=== PATIENT | female | born 1995 | race Caucasian/White ===

== ENCOUNTER 2019-11-02 19:10 | Outpatient (CLI) | payer BC ==
[~2019-11-02] VITALS: Ht 167.6 cm; Wt 81.8 kg
--- NOTE | 2019-11-02 18:55 | NUR ---
Pt arrived on unit with complaints of right lower back/side pain every "couple minutes". Pt denies any leaking of fluid or vaginal bleeding. EFM and toco monitors started. Vital signs WNL. Spoke with Dr. Tejada for an update on pt's arrival, complaints and history. Orders for IV fluids and UA received. See charting for details.
[2019-11-02 20:00] VITALS: BP 121/75; PULSE 75; TEMP 98.3
[2019-11-02] MEDS ORDERED: PRENATAL (20:06)
[2019-11-02 20:43] LABS: PH 7 (5-8); SQUAMOUS EPITHELIAL 0-2 /hpf; URINE APPEARANCE Clear; URINE BACTERIA Occasional /hpf; URINE BILIRUBIN Negative (NEGATIVE); URINE BLOOD 1+ (NEGATIVE); URINE COLOR Yellow; URINE GLUCOSE Negative (NEGATIVE); URINE KETONE Negative (NEGATIVE); URINE LEUKOCYTE ESTERASE 2+ (NEGATIVE); URINE NITRATE Negative (NEGATIVE); URINE PROTEIN(semi-quant) Negative (NEGATIVE); URINE RBC 0-2 /hpf; URINE UROBILINOGEN Negative (NEGATIVE)
--- NOTE | 2019-11-02 21:00 | NUR ---
Pt reports feeling better. Spoke with Dr. Tejada for an update on pt's status. Labs reviewed. SVE by this RN closed/thick/high. Orders for discharge home received. Information reviewed with pt and at the bedside. Both verbalized an understanding and agreed with the plan.
[2019-11-02 21:15] VITALS: BP 114/64; PULSE 77
[2019-11-02 22:29] LABS: COLLECTION METHOD CLEAN CATCH
== END 2019-11-02 21:34 | disposition home or self-care (01) ==
LOC: LDRO 19:10
PROVIDERS: Obstetrics & Gynecology
DX: O26.892 Other specified pregnancy related conditions, second trimester (principal); R52 Pain, unspecified; Z3A.20 20 weeks gestation of pregnancy

== ENCOUNTER 2019-11-06 06:48 | Day surgery (SDC) | payer BC ==
[~2019-11-06] VITALS: Ht 167.6 cm; Wt 82.8 kg
[~2019-11-06 06:48] MED LIST: PRENATAL PO
--- NOTE | 2019-11-06 06:55 | NUR ---
The patient was brought back to [facility] via ambulation using a steady gait and appeared to tolerate the activity well. Vital signs obtained. Consent signed. The patient reports to the nurse that starting "yesterday evening through this morning" her pain has "gone away". She is reluctant to have surgery ,as she is 20 weeks , since she is feeling better. The nurse instructed the patient that she would contact the surgeon to come talk to her before continuing her admission.
--- NOTE | 2019-11-06 07:20 | NUR ---
Dr. Love is at the patient's bedside discussing her new lack of symptoms and how best to proceed today. After discussing her options it was decided between the patient and Dr. Love to cancel her surgery today and discharge her home to monitor her symptoms. Dr. Love instructed the nurse to provide the patient with both his personal cell phone number and his office number for her to call if she starts to have the same symptoms return. She verbalized understanding and has no further questions for the doctor at this time.
--- NOTE | 2019-11-06 07:35 | NUR ---
The patient was escorted to the elevator via ambulation. The patient was sent home with a hat to collect her urine and a strainer to use to try and retrieve a stone if she passes it. She was instructed on how to use the hat and strainer and was given a specimen cup to place any particles that are collected. The nurse instructed the patient to call Dr. Love on Saturday if she is still feeling good to touch base. The patient's is present to drive her home.
[2019-11-06 07:37] VITALS: BP 104/66; PULSE 95; TEMP 98.2
== END 2019-11-06 07:35 | disposition home or self-care (01) ==
LOC: SDCO 06:48
DX: O26.832 Pregnancy related renal disease, second trimester (principal); N20.0 Calculus of kidney; O98.312 Other infections with a predominantly sexual mode of transmission complicating pregnancy, second trimester; A60.00 Herpesviral infection of urogenital system, unspecified; Z83.3 Family history of diabetes mellitus; Z80.1 Family history of malignant neoplasm of trachea, bronchus and lung; Z53.8 Procedure and treatment not carried out for other reasons

== ENCOUNTER 2020-03-17 17:08 | Outpatient (CLI) | payer BC ==
[~2020-03-17] VITALS: Ht 167.6 cm; Wt 90.9 kg
--- NOTE | 2020-03-17 17:27 | NUR ---
Patient ambulatory to unit accompanied by spouse. States she started having regular painful contractions around 1300 today. Denies any leaking of fluid or vaginal bleeding and states baby has been active. FHR and contraction monitors placed and explained. SVE 07/25/. Assessment completed. Will call doctor for orders
[2020-03-17] MEDS ORDERED: VALTREX 50500 MG/TAB PO (17:28)
--- NOTE | 2020-03-17 17:40 | NUR ---
1740: Patient given mug of water and crackers. Encouraged oral hydration and snack.
--- NOTE | 2020-03-17 18:10 | NUR ---
1809: IV started in left hand, D5 1/2 NS infusing. 1816: FHR minimal variability, no accelerations and no decelerations. Oxygen on via face mask at 10L. Patient repositioned to far right lateral.
[2020-03-17 18:22] VITALS: BP 118/74; PULSE 73
[2020-03-17 19:00] VITALS: BP 107/59; PULSE 77
[2020-03-17 19:31] VITALS: BP 110/58; PULSE 70
--- NOTE | 2020-03-17 19:31 | NUR ---
ULTRASOUND AT BEDSIDE FOR BPP. EFM DC'D DURING BPP.
--- NOTE | 2020-03-17 20:16 | NUR ---
DR. MARQUEZ CALLS THIS NURSE TO GIVE RESULTS OF BPP. DR. MARQUEZ STATES HR OF 136BPM, NORMAL AMNIOTIC FLUID, 02/05 BPP. THIS NURSE NOTIFIES DR. MARQUEZ THAT HE IS TO CONTACT DR. CORDON WITH THESE RESULTS THEY ARE NOT TO BE CALLED TO THE NURSING STAFF. HE STATES, "SERIOUSLY? YOU CAN'T JUST TELL HER?" THIS NURSE STATES THAT SHE CAN BUT HE IS REALLY TO CALL THE PHYSICIAN DIRECTLY TO GIVE THESE RESULTS. HE STATES, "I DON'T HAVE HER NUMBER." THIS NURSE PROVIDES DR. CORDON'S PHONE NUMBER TO DR. MARQUEZ WHO THEN STATES, "FINE, I WILL CALL HER."
[2020-03-17 20:24] VITALS: BP 112/59; PULSE 83
--- NOTE | 2020-03-17 20:24 | NUR ---
2020- DR. CORDON CALLS UNIT AND STATES THAT SHE REVIEWED THE BPP RESULTS. THIS NURSE ASKS IF DR MARQUEZ CONTACTED HER WITH THE RESULTS, SHE STATES, "NO." THIS NURSE NOTIFIED DR. CORDON OF THE RESULTS GIVEN BY DR. MARQUEZ WHEN HE CALLED THE UNIT OF HR OF 136BPM, NORMAL AMNIOTIC FLUID, 02/[address] CORDON WAS NOTIFIED THAT DR. MARQUEZ HAD AGREED TO CALL HER DIRECTLY WHEN HE SPOKE TO THIS NURSE. SINCE BEING BACK ON THE MONITORS FOLLOWING THE BPP, FHT'S ARE REASSURING, MODERATE VARIABILITY NOTED, WITH 1 ACCELERATION IN THE LAST 20 MINUTES, NO DECELERATIONS NOTED. PT CONTINUES TO HAVE IRREGULAR CONTRACTIONS EVERY 2-5 MINUTES THAT SHE STATES SHE FEELS AND ARE UNCOMFORTABLE. DR CORDON GIVES ORDER FOR PT TO DC HOME AT THIS TIME SHE IS COMFORTABLE WITH THE BPP RESULTS AND HAS REVIEWED THE STRIP FROM HOME. THIS NURSE ASKED IF SHE WOULD LIKE A RECHECK OF THE PT'S SVE DUE TO CONTINUED CONTRACTIONS AND PT DISCOMFORT. SHE STATES TO PERFORM AN SVE BUT IF SIGNIFICANT CERVICAL CHANGE HAS NOT BEEN MADE THEN PT MAY DC HOME, CAN TAKE TYLENOL AND BENADRYL AND GET SOME REST. 2023- SVE UNCHANGED SINCE ARRIVAL, MONITORING DC'D. QUESTIONS ENCOURAGED AND ANSWERED. PT TO BATHROOM TO CHANGE WHILE DISCHARGE PAPERWORK IS PREPARED.
--- NOTE | 2020-03-17 21:00 | NUR ---
DISCHARGE INSTRUCTIONS REVIEWED WITH PT AND SPOUSE, QUESTIONS ENCOURAGED AND ANSWERED. PT OFF THE UNIT AMBULATORY WITH SPOUSE FOR HOME.
== END 2020-03-17 21:00 | disposition home or self-care (01) ==
LOC: LDRO 17:08 → LDR 17:53 → LDRO 21:00 → ZCOL.LAB 03-18 11:45
DX: O62.9 Abnormality of forces of labor, unspecified (principal); Z3A.39 39 weeks gestation of pregnancy
CPT/HCPCS: OP

== ENCOUNTER 2020-03-18 22:07 | Inpatient (IN) | payer BC ==
[~2020-03-18] VITALS: Ht 167.6 cm; Wt 93.2 kg
--- NOTE | 2020-03-18 22:05 | NUR ---
220- PT. TO THE FLOOR WITH BY HER SIDE. ORIENTATED TO ROOM AND CHANGED INTO CLEAN GOWN. PT. REPORTS GFM, NO LOF, NO BLOOD AND CONTRACTIONS EVERY 2-5 MINUTES THAT ARE GETTING STRONGER SINCE LOSING MUCUS PLUG TODAY AT 1600. 221- EFM AND TOCO ON AND TRACING. VITAL SIGNS TAKEN, ASSESSMENT COMPLETED. SVE /-2.
[~2020-03-18 22:07] MED LIST changes: +VALTREX 50500 MG/TAB PO
[2020-03-18 22:30] VITALS: BP 108/67; PULSE 80; TEMP 97.9
[2020-03-18 23:30] VITALS: BP 125/79; PULSE 75
[2020-03-19] VITALS (35 sets, daily range): BP systolic 95–142; BP diastolic 51–84; PULSE 65–89; TEMP 97.4–98.2
[2020-03-19 00:21] LABS: HEMOGLOBIN 10.6 g/dl (12.5-16.0); MEAN CELL VOLUME 85 fl (80.0-100.0); MEAN CORPUSCULAR HEMOGLOBIN 28 pg (27.0-31.0); MEAN CORPUSCULAR HGB CONC 33 g/dl (33.0-37.0); PLATELET COUNT 240 K/mm3 (130-400); RED BLOOD COUNT 3.81 M/mm3 (4.10-5.30); REDCELL DISTRIBUTION WIDTH-CV 14.7 % (11.5-14.5)
[2020-03-19 00:27] LABS: HEMATOCRIT 32.4 % (37.0-47.0)
--- NOTE | 2020-03-19 00:31 | NUR ---
0010- RN TO BEDSIDE TO HELP GET ROOM AND PATIENT SET UP FOR EPIDURAL PLACE. 0013- RUTHI, MACHINERY RIGGER TO BEDSIDE FOR EPIDURAL PLACEMENT. 0015- MATERNAL O2 ON AND TRACING, PATIENT HELPED TO SITTING POSITION FOR EPIDURAL PLACEMENT. RN REMAINS AT BEDSIDE. 0028- SINGLE SHOT, SEE ANESTHESIA RECORD. 0031- TEST DOSE, SEE ANESTHESIA RECORD. RN REMAINS AT BEDSIDE, VITALS STABLE, PATIENT HELPED TO LL POSITION.
[2020-03-19 00:52] LABS: EOSINOPHIL 1 % (0-4); LYMPHOCYTE 37 % (20.0-51.0); NEUTROPHILS 54 % (42.0-75.2); PLATELET ESTIMATE NORMAL (NORMAL)
[2020-03-19 00:54] LABS: HYPOCHROMIA 1+
--- NOTE | 2020-03-19 01:53 | NUR ---
DR. DOVER TO BEDSIDE FOR AROM. LARGE AMOUNT OF MECONIUM STAINED FLUID NOTED. SVE /-2. PATIENT TOLERATED PROCEDURE WELL. PROVIDER DISCUSSED MECONIUM STAINED FLUID WITH PATIENT AND WHAT TO EXPECT AND THE POTENTIAL RISKS AND ANSWERED QUESTIONS. CALL LIGHT WITHIN REACH AND PATIENT DENIES FURTHER NEEDS AT THIS TIME.
--- NOTE | 2020-03-19 05:15 | NUR ---
0515- DR. DOVER AND RN TO BEDSIDE FOR SVE. SVE /-1. DR. DOVER DISCUSSES STARTING PITOCIN TO HELP GET CONTRACTIONS MORE CONSISTENT AND STRONGER TO HELP WITH THE LABOR PROCESS SINCE THE PATIENT HAS STARTED TO NOT MAKE ADEQUATE CHANGE. PATIENT AGREED AND PROVIDER ANSWERED QUESTIONS. 0527- RN STARTED PITOCIN PER INDUCTION PROTOCOL AT 2MU/HR.
--- NOTE | 2020-03-19 06:16 | NUR ---
0555- CALLED PROVIDER TO UPDATED HIM TO NEEDING HIM AT THE BEDSIDE FOR DELIVERY. PATIENT FEELING LOTS OF PRESSURE AND STARTING TO BEAR DOWN. SVE WAS 9-10/LIP/+1. HE STATED HE WAS ON HIS WAY. CALLED NURSERY NURSE FOR DELIVERY AND SET PATIENT AND ROOM UP FOR DELIVERY. 0603- [place]O REMOVED WITH BALLOON INTACT AND 600ML OF CLEAR YELLOW URINE NOTED IN BAG. 0605- DR. DOVER TO BEDSIDE FOR DELIVERY. PATIENT BEGINS PUSHING SHE FELT THE NEED. RN AND PROVIDER REMAIN AT BEDSIDE. 0616- OF VIABLE FEMALE INFANT. PLACED TO MOTHER ABDOMEN AND NURSERY NURSE ASSUMES CARE AT THIS TIME. PITOCIN TURNED OFF. 0624- OF PLACENTA. PITOCIN STARTED AT 333ML/HR PER PROTOCOL. FUNDUS MASSAGED TO FIRM BY RN AND NOTED TO BE DOWN 1 WITH A MODERATE AMOUNT OF BLOOD SEEN. PROVIDER NOTED PATIENT TO BE INTACT AND STRAIGHT CATHED PATIENT BECAUSE URINE CAME OUT WITH THE FUNDAL MASSAGE. A SMALL AMOUNT OF URINE WAS NOTED. 0625- RECOVERY STARTED. VITALS STABLE. FUNDUS FIRM AND DOWN 1 WITH MODERATE AMOUNT OF BLOOD NOTED. EBL WAS 300 PER PROVIDER. PATIENT AND ROOM CLEANED UP AND BED PUT BACK TOGETHER. NEW CHUX PAD AND PAD TO PERINEUM.
--- NOTE | 2020-03-19 09:00 | NUR ---
THIS NURSE TOLD PATIENT SHE WAS COVID POSITIVE. PATIENT STATES " I WORRIED THIS WAS GOING TO HAPPEN. MY HAD COVID 19 ON JAN 31. WE LIVE IN [place] SO [facility] HAD US QUARANTINE THEN FOR 2 WEEKS. 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 I TOLD THE LAB YESTERDAY WHEN I CAME IN TO BE TESTED ALSO." THIS NURSE TOLD PATIENT SHE WOULD LET THE DOCTOR AND LABRATORY KNOW. PATIENTS EPIDURAL REMOVED. PATIENT AMBULATED TO BATHROOM, OSCAR CARE PROVIDED. NEW GOWN, PAD AND PANTIES PROVIDED. NEW BED LINENS PROVIDED. ROLLER CHAIR PROVIDED FOR PATIENTS . ROOM ORGANIZED AND SANITIZED. PATIENT INSTRUCTED THAT THIS WILL BE HER ROOM WHILE STAYING IN THE HOSPITAL. PATIENT UNDERSTOOD.
[2020-03-20] VITALS: BP 119/84; PULSE 81; TEMP 97.9
[2020-03-20 04:00] VITALS: BP 107/58; PULSE 76; TEMP 98.1
[2020-03-20 08:10] VITALS: BP 109/60; PULSE 77; TEMP 97.9
[2020-03-20] MEDS ORDERED: MOTRIN 600600 MG/TAB PO (08:34)
[2020-03-20] MEDS ORDERED: PERCOCET 325 MG1 TA2 PO (08:34)
--- NOTE | 2020-03-20 12:00 | NUR ---
1200- Discharge paperwork given and explained, Questions answered. Pt/ sign where required. Due to Positive COVID status, paperwork placed in clean ziplock bags using 2 person technique. Paperwork photo copied and originals placed in shred box in ziplocks per supervisor housecleanerfiling and polishing supervisor. 1245- Pt excorted off unit via wheelchair by RN x2. Pt and infant wrapped in bath blanket.
== END 2020-03-20 12:45 | disposition home or self-care (01) | DRG 805 ==
LOC: LDRO 22:07 → LDR 23:43
PROVIDERS: Obstetrics & Gynecology; ADMIT Obstetrics & Gynecology
PROC: 10E0XZZ Delivery of Products of Conception, External Approach (ICD-10-PCS; principal; 2020-03-18)
PROC: 10907ZC Drainage of Amniotic Fluid, Therapeutic from Products of Conception, Via Natural or Artificial Opening (ICD-10-PCS; 2020-03-18)
DX: O99.02 Anemia complicating childbirth (principal); U07.1 COVID-19; Z37.0 Single live birth; O98.52 Other viral diseases complicating childbirth; D64.9 Anemia, unspecified; E55.9 Vitamin D deficiency, unspecified; O77.0 Labor and delivery complicated by meconium in amniotic fluid; Z3A.39 39 weeks gestation of pregnancy
CPT/HCPCS: J2400; J2590; J2791; J2795; J7120